=== PATIENT | female | born 1980 | race Two or more races ===

== ENCOUNTER 2019-07-17 04:30 | Emergency (ER) | payer OTHER ==
[~2019-07-17] VITALS: Ht 154.9 cm; Wt 49.0 kg
== END 2019-07-17 06:54 | disposition home or self-care (01) ==
LOC: ER 04:30
DX: S01.82XA Laceration with foreign body of other part of head, initial encounter (principal); W18.09XA Striking against other object with subsequent fall, initial encounter; Y93.89 Activity, other specified; Y92.091 Bathroom in other non-institutional residence as the place of occurrence of the external cause; Y99.8 Other external cause status